=== PATIENT | female | born 1940 | race Caucasian/White ===

== ENCOUNTER → 2017-12-09 | Outpatient (CLI) | payer BC ==
[~2017-12-09] MED LIST: APAP500 PO; ASPIR-TRIN325 MG PO; ASPIRIN325 PO; ATROVENT HFA14 GM INH; CALCIUM 600 +1 EAC1 PO; CEFTIN PO; CELEXA20 MG PO; COLACE100 MG PO; DUONEB 2.5-0.5 M3 ML INH; ESTRADIOL TRAN1 EAC2 TOP; MAGOX 400400 MG PO; NEURONTIN 300300 M1 PO; NORCO 10-325 T1 EACH PO; OXYCODONE HCL 55 MG PO; PROTONIX40 M1 PO; SPECIAL C 5001 EACH PO; SPIRIVA INH; STOOL SOFTENER1 EAC2 PO; SYMBICORT160 MCG/4. INH; TEMAZEPAM30 MG PO; TRAMADOL 50 MG50 MG PO; TUMS PO; VALTREX1000 MG PO; VITAMINC500 PO; XARELTO10 MG PO
== END ==
LOC: M.RAD 12:49
DX: Z12.31 Encounter for screening mammogram for malignant neoplasm of breast (principal)

== ENCOUNTER → 2018-03-14 | Outpatient (CLI) | payer BC | LOC: M.CT 11:30 | DX: J84.10 Pulmonary fibrosis, unspecified (principal); J98.4 Other disorders of lung; K44.9 Diaphragmatic hernia without obstruction or gangrene ==

== ENCOUNTER 2018-06-06 12:20 | Emergency (ER) | payer BC ==
[~2018-06-06] VITALS: Ht 175.3 cm; Wt 78.0 kg
[~2018-06-06 12:20] MED LIST changes: -ASPIRIN325 PO; -CALCIUM 600 +1 EAC1 PO; -NORCO 10-325 T1 EACH PO; -TRAMADOL 50 MG50 MG PO; -VALTREX1000 MG PO; -VITAMINC500 PO
[2018-06-06] MEDS ORDERED: VITAMINC500 PO (12:45)
[2018-06-06] MEDS ORDERED: NORCO 10-325 T1 EACH PO (12:47)
[2018-06-06] MEDS ORDERED: VALTREX1000 MG PO (12:47)
[2018-06-06] MEDS ORDERED: CALCIUM 600 +1 EAC1 PO (12:47)
[2018-06-06] MEDS ORDERED: ASPIRIN325 PO (12:49)
[2018-06-06 12:53] LABS: CALCIUM 8.6 mg/dL (8.5-10.1); POTASSIUM 3.8 mmol/L (3.5-5.1)
[2018-06-06 12:54] LABS: ABSOLUTE LYMPHOCYTES 0.9 thou/uL (0.8-5.3); ABSOLUTE MONOCYTES 0.8 thou/uL (0.0-1.2); ABSOLUTE NEUTROPHILS 7.2 thou/uL (1.6-8.1); BASOPHILS 0.1 %; HEMATOCRIT 34.8 % (37.0-47.0); HEMOGLOBIN 11.5 gm/dL (12.0-15.0); LYMPHOCYTES 10.2 %; MCH 32.9 pg (26.0-34.0); MCHC 33.1 g/dL (28.0-37.0); MCV 99.5 fL (80.0-100.0); MPV 8.2 fl. (7.2-11.1); NUCLEATED RBCS 0 /100WBC; PLATELET COUNT* 159 thou/uL (150-400); POLYS 80.7 %; RDW-CV 13.7 % (10.5-14.5)
[2018-06-06 12:55] LABS: APTT 27.2 Seconds (25.0-31.3); PROTIME 10.3 Seconds (9.20-11.50)
[2018-06-06 12:58] LABS: ALBUMIN 3.3 g/dL (3.4-5.0); TOTAL BILIRUBIN 0.7 mg/dL (<0.1-1.0)
[2018-06-06] MEDS ORDERED: TRAMADOL 50 MG50 MG PO (14:40)
[2018-06-06 15:09] VITALS: BP 152/68
== END 2018-06-06 15:09 | disposition home or self-care (01) ==
LOC: M.ERS 12:20
PROVIDERS: Nurse Practitioner Family
DX: S22.31XA Fracture of one rib, right side, initial encounter for closed fracture (principal); K59.00 Constipation, unspecified; K21.9 Gastro-esophageal reflux disease without esophagitis; Z90.710 Acquired absence of both cervix and uterus; Z98.890 Other specified postprocedural states; Z88.6 Allergy status to analgesic agent; W18.2XXA Fall in (into) shower or empty bathtub, initial encounter; Y93.89 Activity, other specified; Y92.89 Other specified places as the place of occurrence of the external cause; Y99.8 Other external cause status

== ENCOUNTER → 2018-12-11 | Outpatient (CLI) | payer BC ==
[~2018-12-11] MED LIST changes: +ASPIRIN325 PO; +CALCIUM 600 +1 EAC1 PO; +NORCO 10-325 T1 EACH PO; +TRAMADOL 50 MG50 MG PO; +VALTREX1000 MG PO; +VITAMINC500 PO
== END ==
LOC: M.RAD 12-10 14:00
DX: Z12.31 Encounter for screening mammogram for malignant neoplasm of breast (principal)

== ENCOUNTER → 2018-12-30 | Outpatient (CLI) | payer BC | LOC: M.ULTRA 12:40 | DX: I70.293 Other atherosclerosis of native arteries of extremities, bilateral legs (principal); K21.9 Gastro-esophageal reflux disease without esophagitis; J45.909 Unspecified asthma, uncomplicated; Z96.653 Presence of artificial knee joint, bilateral; Z90.710 Acquired absence of both cervix and uterus ==

== ENCOUNTER → 2020-12-27 | Outpatient (CLI) | payer BC | LOC: M.RAD 13:09 | DX: Z12.31 Encounter for screening mammogram for malignant neoplasm of breast (principal) ==

== ENCOUNTER → 2021-01-02 | Outpatient (CLI) | payer BC | LOC: M.ULTRA 13:00 | DX: N63.20 Unspecified lump in the left breast, unspecified quadrant (principal) ==